=== PATIENT | female | born 1990 | race Caucasian/White ===

== ENCOUNTER 2020-02-18 10:45 | Emergency (ER) | payer OTHER ==
[2020-02-18] MEDS ORDERED: Bacitracin Oint 1 GM U/D Packet TOP ONE (11:55)
[2020-02-18] MEDS ORDERED: Cephalexin 250 MG Cap ONE (12:00)
--- NOTE | 2020-02-18 12:10 | EDM.PDOC ---
ED HPI GENERAL MEDICAL PROBLEM - General Chief Complaint: General Stated Complaint: WRIST INJURY WITH STICK STICKING OUT OF IT Time Seen by Provider: 02/18/20 11:30 Source of Information: Reports: Patient History Limitations: Reports: No Limitations - History of Present Illness INITIAL COMMENTS - FREE TEXT/NARRATIVE: This patient presents to the ED for evaluation of a wrist injury. She fell [place] walking [place] a dock and is complaining of wrist pain. She also has a splinter of wood protruding from the lateral wrist area. She is 30 weeks with an uncomplicated and routine care. She feels movement. She denies other injuries or concerns. She denies recent illness including fever, cough, sore throat, or shortness of breath. Onset: Today, Sudden Location: Reports: Upper Extremity, Left Quality: Reports: Sharp, Throbbing Worsens with: Reports: Movement Context: Reports: Activity Associated Symptoms: Reports: No Other Symptoms Left Wrist Pain Score (Numeric/FACES): 4 Past Medical History - Past Health History Medical/Surgical History: Denies Medical/Surgical History Social & Family History - Tobacco Use Smoking Status *Q: Never Smoker - Caffeine Use Caffeine Use: Reports: Soda - Recreational Drug Use Recreational Drug Use: No ED ROS GENERAL - Review of Systems Review Of Systems: Comprehensive ROS is negative, except as noted in HPI. ED EXAM, GENERAL - Physical Exam Exam: See Below Exam Limited By: No Limitations General Appearance: Alert, No Apparent Distress Ears: Normal External Exam Nose: Normal Inspection Throat/Mouth: Normal Inspection Head: Atraumatic, Normocephalic Neck: Normal Inspection, Full Range of Motion Respiratory/Chest: No Respiratory Distress, No Accessory Muscle Use Extremities: Other (right wrist: small amount of swelling over joint, wood splinter approximately 4 mm wide protruding from ulnar aspect. No obvious deformity, redeness around foreign body.) Neurological: Alert, Oriented Psychiatric: Normal Affect Skin Exam: Warm, Dry Course - Vital Signs Last Recorded V/S: Last Vital Signs Temp 36.7 C 02/18/20 11:25 Pulse 73 02/18/20 11:25 Resp 16 02/18/20 11:25 BP 104/59 L 02/18/20 11:25 Pulse Ox 100 02/18/20 11:25 - Orders/Labs/Meds Orders: Active Orders 24 hr Category Date Time Status Wrist Comp Min 3V Lt [CR] Stat Exams 02/18/20 11:25 Taken - Re-Assessments/Exams Free Text/Narrative Re-Assessment/Exam: 02/18/20 12:12 This patient presents for evaluation of a foreign body in the right wrist and wrist pain. X-ray of wrist identified no acute findings with the exception of foreign body approximately 0.5 cm under the skin. This was successfully removed after local infiltration with 3 mL 1% lidocaine. The puncture was irrigated with approximately 100 mL NS with Hibiclens. Antibiotic ointment and pressure dressing applied. No signs of complications of the foreign body including abscess, cellulitis, necrotizing fascitis, penetration of vascular or nerve structures, etc. She had good ROM in the right wrist after foreign body removed. Patient is more comfortable after removal. Will have them follow up with primary care for wound check. Risk of infection discussed. Departure - Departure Time of Disposition: 12:00 Disposition: Home, Self-Care 01 Condition: Good Clinical Impression: Foreign body (FB) in soft tissue, Sprain of wrist, right - Discharge Information Instructions: Puncture Wound, [id number] Referrals: PCP,None [Primary Care Provider] - Forms: ED Department Discharge Care Plan Goals: Take antibiotic as prescribed. Follow up with primary provider as needed. Watch for signs of infection. Return to hospital or clinic with any questions or concerns. Keep area clean and dry. May use antibiotic ointment on the wound. Sepsis Event Note - Evaluation Sepsis Screening Result: No Definite Risk - Focused Exam Vital Signs: Vital Signs Temp Pulse Resp BP Pulse Ox 02/18/20 11:25 36.7 C 73 16 104/59 L 100 Date Exam was Performed: 02/18/20 Time Exam was Performed: 12:05 - My Orders Last 24 Hours: My Active Orders 02/18/20 11:25 Wrist Comp Min 3V Lt [CR] Stat - Assessment/Plan Last 24 Hours: My Active Orders 02/18/20 11:25 Wrist Comp Min 3V Lt [CR] Stat
--- NOTE | 2020-02-18 23:12 | CR ---
DATE OF SERVICE: 02/18/2020 CLINICAL DATA: Trauma. LEFT WRIST: No acute fracture or dislocation. No lytic or blastic bone lesions. No soft tissue abnormalities. [id number] [facility]
== END 2020-02-18 12:05 | disposition home or self-care (01) ==
LOC: LB.ED 10:45
DX: O9A.213 Injury, poisoning and certain other consequences of external causes complicating pregnancy, third trimester (principal); S63.502A Unspecified sprain of left wrist, initial encounter; S60.852A Superficial foreign body of left wrist, initial encounter; Z3A.30 30 weeks gestation of pregnancy; W45.8XXA Other foreign body or object entering through skin, initial encounter
CPT/HCPCS: 64450; 73110-LT; 99283; 99283-25; A9270-GY; J2001